=== PATIENT | female | born 1955 | race Caucasian/White ===

== ENCOUNTER 2017-09-03 06:52 | Outpatient (CLI) | payer OTHER | END 2017-09-03 07:01 | disposition home or self-care (01) | LOC: LAB 06:52 | DX: N91.2 Amenorrhea, unspecified (principal); E78.5 Hyperlipidemia, unspecified; E34.8 Other specified endocrine disorders; N39.0 Urinary tract infection, site not specified ==

== ENCOUNTER 2017-11-05 06:23 | Outpatient (CLI) | payer OTHER | END 2017-11-05 06:37 | disposition home or self-care (01) | LOC: LAB 06:23 | DX: N91.2 Amenorrhea, unspecified (principal); E78.4 Other hyperlipidemia; E34.9 Endocrine disorder, unspecified; N95.1 Menopausal and female climacteric states; E23.6 Other disorders of pituitary gland; R19.00 Intra-abdominal and pelvic swelling, mass and lump, unspecified site; N39.0 Urinary tract infection, site not specified; E55.9 Vitamin D deficiency, unspecified ==

== ENCOUNTER 2018-03-19 07:22 | Outpatient (CLI) | payer OTHER | END 2018-03-19 07:35 | disposition home or self-care (01) | LOC: LAB 07:22 | DX: N91.2 Amenorrhea, unspecified (principal); E34.9 Endocrine disorder, unspecified; N95.1 Menopausal and female climacteric states; E23.6 Other disorders of pituitary gland; R19.00 Intra-abdominal and pelvic swelling, mass and lump, unspecified site; N39.0 Urinary tract infection, site not specified; E55.9 Vitamin D deficiency, unspecified; N73.9 Female pelvic inflammatory disease, unspecified; A60.04 Herpesviral vulvovaginitis; Z34.90 Encounter for supervision of normal pregnancy, unspecified, unspecified trimester; E78.49 Other hyperlipidemia ==

== ENCOUNTER 2018-04-08 07:00 | Emergency (ER) | payer OTHER ==
[~2018-04-08] VITALS: Ht 157.5 cm; Wt 57.6 kg
[2018-04-08] MEDS ORDERED: BUSPIRONE HCL5 MG (07:33)
== END 2018-04-08 11:39 | disposition home or self-care (01) ==
LOC: ER 07:00
DX: S20.212A Contusion of left front wall of thorax, initial encounter (principal); W18.09XA Striking against other object with subsequent fall, initial encounter; Y93.89 Activity, other specified; Y92.89 Other specified places as the place of occurrence of the external cause; Y99.8 Other external cause status

== ENCOUNTER 2018-08-27 07:56 | Outpatient (CLI) | payer OTHER ==
[~2018-08-27 07:56] MED LIST: BUSPIRONE HCL5 MG
== END 2018-08-27 15:19 | disposition home or self-care (01) ==
LOC: MAMO-SONO 07:56
DX: Z12.31 Encounter for screening mammogram for malignant neoplasm of breast (principal); N63.10 Unspecified lump in the right breast, unspecified quadrant; N63.20 Unspecified lump in the left breast, unspecified quadrant

== ENCOUNTER 2018-12-23 07:37 | Outpatient (CLI) | payer OTHER | END 2018-12-23 07:45 | disposition home or self-care (01) | LOC: LAB 07:37 | DX: E78.49 Other hyperlipidemia (principal) ==

== ENCOUNTER 2020-09-26 13:49 | Outpatient (CLI) | payer OTHER | END 2020-09-26 13:58 | disposition home or self-care (01) | LOC: MAMO-SONO 13:49 | PROVIDERS: ATTEND Obstetrics & Gynecology | DX: N60.11 Diffuse cystic mastopathy of right breast (principal); N60.12 Diffuse cystic mastopathy of left breast; Z12.31 Encounter for screening mammogram for malignant neoplasm of breast ==

== ENCOUNTER 2021-01-02 13:04 | Outpatient (CLI) | payer OTHER | END 2021-01-02 13:12 | disposition home or self-care (01) | LOC: SONOGRAMA 13:04 | PROVIDERS: ATTEND General Practice | DX: E34.8 Other specified endocrine disorders (principal); E03.1 Congenital hypothyroidism without goiter ==

== ENCOUNTER → 2021-01-26 | Outpatient (CLI) | payer OTHER | END | disposition home or self-care (01) | LOC: PPH VACUNA 08:00 | PROVIDERS: ATTEND Emergency Medicine Pediatric Emergency Medicine | DX: Z23 Encounter for immunization (principal) ==

== ENCOUNTER 2021-03-21 14:33 | Outpatient (CLI) | payer OTHER | END 2021-03-21 14:40 | disposition home or self-care (01) | LOC: RAD 14:33 | PROVIDERS: ATTEND Specialist | DX: E78.5 Hyperlipidemia, unspecified (principal) ==

== ENCOUNTER → 2021-03-22 06:21 | Outpatient (CLI) | payer OTHER | END | disposition home or self-care (01) | LOC: LAB 06:21 | PROVIDERS: ATTEND Specialist | DX: I11.9 Hypertensive heart disease without heart failure (principal) ==

== ENCOUNTER 2021-03-22 07:06 | Outpatient (CLI) | payer OTHER | END 2021-03-22 07:08 | disposition home or self-care (01) | LOC: SONOGRAMA 07:06 | PROVIDERS: ATTEND Specialist | DX: Q44.6 Cystic disease of liver (principal) ==

== ENCOUNTER 2021-07-25 08:00 | Outpatient (CLI) | payer OTHER | END 2021-07-25 08:30 | disposition home or self-care (01) | LOC: PPH VACUNA 08:00 | PROVIDERS: ATTEND Emergency Medicine Pediatric Emergency Medicine | DX: Z23 Encounter for immunization (principal) ==

== ENCOUNTER 2021-11-07 08:17 | Outpatient (CLI) | payer OTHER | END 2021-11-07 08:22 | disposition home or self-care (01) | LOC: MAMO-SONO 08:17 | PROVIDERS: ATTEND Obstetrics & Gynecology | DX: Z12.31 Encounter for screening mammogram for malignant neoplasm of breast (principal); N63.10 Unspecified lump in the right breast, unspecified quadrant; N63.20 Unspecified lump in the left breast, unspecified quadrant ==

== ENCOUNTER 2022-03-20 08:05 | Emergency (ER) | payer OTHER ==
[~2022-03-20] VITALS: Ht 154.9 cm; Wt 56.2 kg
[2022-03-20] MEDS ORDERED: ATORVASTATIN CA10 MG PO (08:11)
== END 2022-03-20 13:34 | disposition home or self-care (01) ==
LOC: ER 08:05
DX: S70.01XA Contusion of right hip, initial encounter (principal); S70.11XA Contusion of right thigh, initial encounter; W18.39XA Other fall on same level, initial encounter; Y93.89 Activity, other specified; Y92.488 Other paved roadways as the place of occurrence of the external cause; Y99.9 Unspecified external cause status

== ENCOUNTER 2022-03-29 11:56 | Outpatient (CLI) | payer OTHER ==
[~2022-03-29 11:56] MED LIST changes: +ATORVASTATIN CA10 MG PO; +DICLOFENAC POTA50 MG PO; +METHOCARBAMOL500 MG PO
== END 2022-03-29 12:05 | disposition home or self-care (01) ==
LOC: RAD 11:56
PROVIDERS: ATTEND Physical Medicine & Rehabilitation
DX: M25.551 Pain in right hip (principal); M54.50 Low back pain, unspecified
CPT/HCPCS: 73721

== ENCOUNTER 2022-04-08 10:33 | Outpatient (CLI) | payer OTHER | END 2022-04-08 10:39 | disposition home or self-care (01) | LOC: RAD 10:33 | PROVIDERS: ATTEND Orthopaedic Surgery | DX: S82.144A Nondisplaced bicondylar fracture of right tibia, initial encounter for closed fracture (principal) ==

== ENCOUNTER 2022-04-24 07:32 | Outpatient (CLI) | payer OTHER | END 2022-04-24 07:37 | disposition home or self-care (01) | LOC: RAD 07:32 | PROVIDERS: ATTEND Orthopaedic Surgery | DX: S72.144A Nondisplaced intertrochanteric fracture of right femur, initial encounter for closed fracture (principal) ==

== ENCOUNTER 2022-05-03 08:28 | Outpatient (CLI) | payer OTHER | END 2022-05-03 08:33 | disposition home or self-care (01) | LOC: LAB 08:28 | DX: D68.9 Coagulation defect, unspecified (principal); E78.5 Hyperlipidemia, unspecified ==

== ENCOUNTER → 2022-05-21 | Outpatient (CLI) | payer OTHER | END | disposition home or self-care (01) | LOC: RAD 10:25 | PROVIDERS: ATTEND Orthopaedic Surgery | DX: S72.144A Nondisplaced intertrochanteric fracture of right femur, initial encounter for closed fracture (principal) ==

== ENCOUNTER 2022-08-08 07:11 | Outpatient (CLI) | payer OTHER | END 2022-08-08 07:17 | disposition home or self-care (01) | LOC: SONOGRAMA 07:11 | DX: R10.84 Generalized abdominal pain (principal) ==

== ENCOUNTER 2022-08-13 13:13 | Outpatient (CLI) | payer OTHER | END 2022-08-13 13:19 | disposition home or self-care (01) | LOC: NUCLEAR 13:13 | PROVIDERS: ATTEND Orthopaedic Surgery | DX: M81.0 Age-related osteoporosis without current pathological fracture (principal) ==

== ENCOUNTER 2022-08-20 10:46 | Outpatient (CLI) | payer OTHER | END 2022-08-20 10:52 | disposition home or self-care (01) | LOC: RAD 10:46 | PROVIDERS: ATTEND Orthopaedic Surgery | DX: S72.144D Nondisplaced intertrochanteric fracture of right femur, subsequent encounter for closed fracture with routine healing (principal) ==

== ENCOUNTER → 2024-10-06 10:29 | Outpatient (CLI) | payer OTHER | END | disposition home or self-care (01) | LOC: NUCLEAR 08-16 13:15 | PROVIDERS: ATTEND Orthopaedic Surgery | DX: M81.0 Age-related osteoporosis without current pathological fracture (principal) ==